=== PATIENT | female | born 1990 | race Caucasian/White ===

== ENCOUNTER 2018-01-10 12:39 | Emergency (ER) | payer BC ==
[~2018-01-10 12:39] MED LIST: MACR100C2 PO; ZOFR4TAB3 SL
--- NOTE | 2018-01-10 13:34 | PD ---
HPI Chief Complaint Contractions Date Seen: January 10, 2018 Time Seen: 13:30 Travel History International Travel<30 Days: No Contact w/Intl Traveler<30Days: No Known Affected Area: No History of Present Illness HPI 27yo at 38 weeks and 3 days comes in here complaining of contractions that have improved greatly since she is arrived. Patient states that she was checked about a week ago and her cervix was effaced but not yet dilated. Her contractions although were fairly frequent were very mild and were not painful at home not associated with vaginal bleeding no discharge no rupture membranes and she is having good movement. Patient denies any antepartum complications Weeks Gestation: 38 Para: 0 : 1 History Past Medical History Medical History: Denies Significant Hx Past Surgical History Surgical History: No Previous Surgery Family History Family History: Negative Social History Alcohol Use: No Tobacco Use: No Substance Abuse: No Allergies-Medications (Allergen,Severity, Reaction): Coded Allergies: No Known Allergies (Unverified , 06/29/17) Home Meds Active Scripts Nitrofurantoin Monohydrate Macrocrystals (Macrobid) 100 Mg Cap, 100 MG PO BID for Infection for 7 Days, #14 CAP 0 Refills Prov:Rizwan Aguirre MD 06/29/17 Ondansetron Odt (Zofran Odt) 4 Mg Tab, 4 MG SL Q6HR Y for Nausea/Vomiting, #30 TAB 0 Refills Prov:Rizwan Aguirre MD 06/29/17 Review of Systems Except as stated in HPI: all other systems reviewed are Neg Physical Exam Narrative GENERAL: Well-nourished, well-developed patient. SKIN: Warm and dry. HEAD: Normocephalic and atraumatic. EYES: No scleral icterus. No injection or drainage. ENT: No nasal drainage noted. Mucous membranes pink. Airway patent. NECK: Supple, trachea midline. No JVD. CARDIOVASCULAR: Regular rate and rhythm without murmurs, gallops, or rubs. RESPIRATORY: Breath sounds equal bilaterally. No accessory muscle use. ABDOMEN/GI: Abdomen soft, non-tender, bowel sounds present, no rebound, no guarding Gravid to [-37] weeks size Fundal Height: [-] GENITOURINARY: External Genitalia: intact and normal in appearance BUS glands: [-] Normal Cervix: [-] Posterior Dilatation: [-] 1 Effacement: [-] 80 Station: [-] -3 Presentation: [-] Vertex Membranes: [intact or ruptured] intact Uterine Contractions: [-] Rare, only single contractions since patient's arrival 20 minutes ago FHT's: Category: [-] 1 Baseline: [-] 140 Reactive: [-] Moderate Variability: [-] Moderate Decels: [-] Absent EXTREMITIES: No cyanosis or edema. BACK: Nontender without obvious deformity. No CVA tenderness. NEUROLOGICAL: Awake and alert. Motor and sensory grossly within normal limits. Five out of 5 muscle strength in all muscle groups. Normal speech. Data Data Vital Signs Reviewed: Yes [facility] Medical Record Reviewed: Yes Plan 27-year-old at 38 weeks 3 days with false labor, minimal contractions presently with rapid improvement after arrival Patient has a follow-up appointment this week Discussed labor precautions in detail and went to come back to the hospital Diagnosis Diagnosis: Primary Impression: 38 weeks gestation of Additional Impression: False labor after 37 weeks of gestation without delivery Disposition: 01 DISCHARGE HOME Emily Kay MD January 10, 2018 13:34
== END 2018-01-10 13:59 | disposition home or self-care (01) ==
LOC: HOBED 12:39
DX: O47.1 False labor at or after 37 completed weeks of gestation (principal); Z3A.38 38 weeks gestation of pregnancy
CPT/HCPCS: 59025

== ENCOUNTER 2018-01-24 17:52 | Inpatient (IN) | payer BC ==
[~2018-01-24] VITALS: Ht 167.6 cm; Wt 79.0 kg
[2018-01-24] MEDS: LACTATED RINGER'S 1000 ML INJ 1,000 ML IV SCH ×2 (18:15→19:10)
[2018-01-24] MEDS ORDERED: LACTATED RINGER'S 1000 ML INJ 1,000 ML IV PRN (19:10)
[2018-01-24] MEDS ORDERED: DINOPROSTONE 10 MG VAG INSERT VAGINAL ONE (19:15)
[2018-01-24] MEDS ORDERED: LIDOCAINE HCL 1% 50 ML VIAL I-DERMAL PRN (19:15)
[2018-01-24] MEDS ORDERED: OXYTOCIN 30 UNITS-500ML PREMIX 500 ML IV ONE (19:15)
[2018-01-24] MEDS ORDERED: SODIUM CHLORID 0.9% 500 ML INJ 500 ML IV PRN (19:15)
[2018-01-24] MEDS ORDERED: MINERAL OIL 10 ML VIAL TOPICAL PRN (19:15)
[2018-01-24] MEDS ORDERED: SODIUM CHLORIDE 0.9% FLUSH 10 ML FLUSH IV FLUSH PRN (19:15)
[2018-01-24] MEDS ORDERED: CITRIC ACID-SODIUM CITRATE LIQ 30 ML UDC PO SCH (19:15)
[2018-01-24] MEDS ORDERED: LIDOCAINE HCL 1% 50 ML VIAL INFIL PRN (19:15)
[2018-01-24] MEDS ORDERED: SODIUM CHLOR 0.9% 1000 ML INJ 1,000 ML IV PRN (19:30)
[2018-01-24] MEDS ORDERED: ONDANSETRON ODT 4 MG TAB PO PRN (19:30)
[2018-01-24 19:33] LABS: AUTOMATED NEUTROPHIL # 8.8 TH/MM3 (1.8-7.7); BASOPHIL % 0.4 % (0.0-2.0); EOSINOPHIL # 0.1 TH/MM3 (0-0.4); EOSINOPHIL % 0.6 % (0.0-4.0); HEMOGLOBIN 10.1 GM/DL (11.6-15.3); LYMPH % 20.2 % (9.0-44.0); LYMPHOCYTE # 2.4 TH/MM3 (1.0-4.8); MEAN CELL VOLUME 78.6 FL (80.0-100.0); MEAN CORPUSCULAR HEMOGLOBIN 25.6 PG (27.0-34.0); MEAN CORPUSCULAR HGB CONC 32.5 % (32.0-36.0); MEAN PLATELET VOLUME 9.6 FL (7.0-11.0); MONOCYTE # 0.7 TH/MM3 (0-0.9); NEUT % 72.8 % (16.0-70.0); PLATELET COUNT 332 TH/MM3 (150-450); RED BLOOD COUNT 3.94 MIL/MM3 (4.00-5.30); RED CELL DISTRIBUTION WIDTH 15.8 % (11.6-17.2); WHITE BLOOD COUNT 12.1 TH/MM3 (4.0-11.0)
[2018-01-24 19:42] LABS: BACTERIA, URINE OCC /hpf; BILIRUBIN, URINE NEG (NEG); BLOOD, URINE TRACE (NEG); GLUCOSE,URINE NEG (NEG); KETONE, URINE NEG (NEG); MUCUS URINE FEW /lpf (OCC); NITRITE,URINE NEG (NEG); SQUAMOUS EPITHELIAL CELL URINE 37 /hpf (0-5); URINE COLOR YELLOW (YELLW/STRAW); URINE LEUKOCYTE ESTERASE LARGE (NEG); WHITE BLOOD CELL CLUMPS FEW
[2018-01-24] MEDS ORDERED: MISOPROSTOL 25 MCG TAB VAGINAL ONE (20:00)
[2018-01-24] MEDS ORDERED: MISOPROSTOL 25 MCG TAB VAGINAL PRN (20:00)
[2018-01-24] MEDS ORDERED: SODIUM CHLORIDE 0.9% FLUSH 10 ML FLUSH IV FLUSH SCH (21:00)
[2018-01-25] VITALS (7 sets, daily range): BP systolic 115–126; BP diastolic 55–73; PULSE 75–90; RESP 17–19; TEMP 97.5; O2SAT 99
[2018-01-25] MEDS: LACTATED RINGER'S 1000 ML INJ 1,000 ML IV SCH ×3 (02:44→11:22)
--- NOTE | 2018-01-25 08:01 | HHI.HP ---
HPI Chief Complaint labor induction, postdates Date Seen: Jan 25, 2018 Time Seen: 07:40 Travel History International Travel<30 Days: No Contact w/Intl Traveler<30Days: No Known Affected Area: No History of Present Illness HPI 27 yo G1 with EDC 01/21/18 presented last evening for scheduled postdates induction, now 40w4d. No complications during . Mild contraction pain /10, no VB or LOF. Good FM. Weeks Gestation: 41 Para: 0 : 1 Miscarriage: 0 : 0 History Past Medical History Narrative Medical denies significant Obstetric History Obstetric History G1 = current Past Surgical History Narrative Surgical denies Family History Family History: Negative Social History Alcohol Use: No Tobacco Use: Yes (quit when found out at 6 wks) Substance Abuse: No Allergies-Medications (Allergen,Severity, Reaction): Coded Allergies: No Known Allergies (Unverified , 01/24/18) Home Meds Active Scripts Nitrofurantoin Monohydrate Macrocrystals (Macrobid) 100 Mg Cap, 100 MG PO BID for Infection for 7 Days, #14 CAP 0 Refills Prov:Rizwan Aguirre MD 06/29/17 Ondansetron Odt (Zofran Odt) 4 Mg Tab, 4 MG SL Q6HR Y for Nausea/Vomiting, #30 TAB 0 Refills Prov:Rizwan Aguirre MD 06/29/17 Review of Systems General / Constitutional: Weight Gain, No: Fever, Chills, Other Eyes: No: Diploplia, Blurred Vision, Visual changes, Pain, Photophobia HENT: No: Headaches, Vertigo, Lightheadedness Cardiovascular: No: Irregular Rhythm, Chest Pain or Discomfort, Palpitations, Tachycardia, Syncope, Varicosities, Edema, Cyanosis Respiratory: No: Cough, Short of Breath, Other Gastrointestinal: No: Nausea, Vomiting, Diarrhea Genitourinary: Pelvic Pain (pressure), No: Decreased Urinary Output, Oliguria Musculoskeletal: No: Limited ROM, Weakness, Cramping, Edema, Pain Skin: No Rash, No Itching, No Dryness, No Lumps, No Change in Pigmentation, No Change in Nails, No Alopecia, No Lesions Neurologic: No: Weakness, Dizziness, Syncope, Focal Abnormalities, Coordination Problem, Headache, Slurred Speech, Seizures Psychiatric: No: Depression, Suicidal Ideations, Homicidal Ideation Endocrine: No: Heat Intolerance, Cold Intolerance, Polydipsia, Polyuria, Other Physical Exam Narrative GENERAL: Well-nourished, well-developed patient. SKIN: Warm and dry. HEAD: Normocephalic and atraumatic. EYES: No scleral icterus. No injection or drainage. ENT: No nasal drainage noted. Mucous membranes pink. Airway patent. NECK: Supple, trachea midline. No JVD. CARDIOVASCULAR: Regular rate and rhythm without murmurs, gallops, or rubs. RESPIRATORY: Breath sounds equal bilaterally. No accessory muscle use. BREASTS: deferred ABDOMEN/GI: Abdomen soft, non-tender, bowel sounds present, no rebound, no guarding Gravid to [41] weeks size Fundal Height: [41] GENITOURINARY: External Genitalia: intact and normal in appearance Cervix: [posterior, soft] Dilatation: [closed; scar tissue palpated at os; pt denies h/o surgery] Effacement: [60] Station: [-3] Presentation: [vtx] Membranes: [intact] Uterine Contractions: [irregular, mild] FHT's: Category: [I] Baseline: [120s-130s] Reactive: [y] Variability: [y] Decels: [n] EXTREMITIES: No cyanosis or edema. BACK: Nontender without obvious deformity. No CVA tenderness. NEUROLOGICAL: Awake and alert. Motor and sensory grossly within normal limits. Five out of 5 muscle strength in all muscle groups. Normal speech. Caprini VTE Risk Assessment Caprini VTE Risk Assessment: No/Low Risk (score <= 1) VTE Pharm Contraindication: Epidural catheter Caprini Risk Assessment Model Point Value = 1 Point Value = 2 Point Value = 3 Point Value = 5 Age 41-60 Minor surgery BMI > 25 kg/m2 Swollen legs Varicose veins or History of unexplained or recurrent spontaneous Oral contraceptives or hormone replacement Sepsis (< 1 month) Serious lung disease, including pneumonia (< 1 month) Abnormal pulmonary function Acute myocardial infarction Congestive heart failure (< 1 month) History of inflammatory bowel disease Medical patient at bed rest Age 61-74 Arthroscopic surgery Major open surgery (> 45 min) Laparoscopic surgery (> 45 min) Malignancy Confined to bed (> 72 hours) Immobilizing plaster cast Central venous access Age >= 75 History of VTE Family history of VTE Factor V Leiden Prothrombin [id number] Lupus anticoagulant Anticardiolipin antibodies Elevated serum homocysteine Heparin-induced thrombocytopenia Other congenital or acquired thrombophilia Stroke (< 1 month) Elective arthroplasty Hip, pelvis, or leg fracture Acute spinal cord injury (< 1 month) Prophylaxis Regimen Total Risk Factor Score Risk Level Prophylaxis Regimen 0-1 Low Early ambulation 2 Moderate Order ONE of the following: *Sequential Compression Device (SCD) *Heparin 5000 units SQ BID 3-4 Higher Order ONE of the following medications: *Heparin 5000 units SQ TID *Enoxaparin/Lovenox 40 mg SQ daily (WT < 150 kg, CrCl > 30 mL/min) *Enoxaparin/Lovenox 30 mg SQ daily (WT < 150 kg, CrCl > 10-29 mL/min) *Enoxaparin/Lovenox 30 mg SQ BID (WT < 150 kg, CrCl > 30 mL/min) AND/OR *Sequential Compression Device (SCD) 5 or more Highest Order ONE of the following medications: *Heparin 5000 units SQ TID (Preferred with Epidurals) *Enoxaparin/Lovenox 40 mg SQ daily (WT < 150 kg, CrCl > 30 mL/min) *Enoxaparin/Lovenox 30 mg SQ daily (WT < 150 kg, CrCl > 10-29 mL/min) *Enoxaparin/Lovenox 30 mg SQ BID (WT < 150 kg, CrCl > 30 mL/min) AND *Sequential Compression Device (SCD) Data Data Vital Signs Reviewed: Yes Orders Orders Admit To Inpatient (01/24/18 ) Activity Oob Ad Manisha (01/24/18 19:10) ^ Labor Induction (01/24/18 19:10) ^ Vaginal Insert (01/24/18 19:10) ^ Vaginal Lavage (01/24/18 19:10) Heart (01/24/18 19:10) Lactated Ringer's 1000 Ml Inj (Lr 1000 M (01/24/18 19:10) Sodium Chloride 0.9% Flush (Ns Flush) (01/24/18 21:00) Sodium Chloride 0.9% Flush (Ns Flush) (01/24/18 19:15) Admit To Inpatient (01/24/18 ) Code Status (01/24/18 19:10) Vital Signs (Adult) .Per protocol (01/24/18 19:10) Heart (01/24/18 19:10) Amnioinfusion (01/24/18 19:10) Urinary Catheter Management .ONCE (01/24/18 19:10) Lactated Ringer's 1000 Ml Inj (Lr 1000 M (01/24/18 19:10) Lactated Ringer's 1000 Ml Inj (Lr 1000 M (01/24/18 19:10) Sodium Chlorid 0.9% 500 Ml Inj (Ns 500 M (01/24/18 19:15) Sodium Chlor 0.9% 1000 Ml Inj (Ns 1000 M (01/24/18 19:30) Lidocaine 1% Inj (50 Ml) (Xylocaine 1% I (01/24/18 19:15) Citric Acid-Sodium Citrate Liq (Bicitra (01/24/18 19:15) Fentanyl Inj (Fentanyl Inj) (01/24/18 19:15) Fentanyl Inj (Fentanyl Inj) (01/24/18 19:15) Complete Blood Count With Diff (01/24/18 19:10) Hold Clot (01/24/18 19:10) Abo/Rh Blood Type (01/24/18 19:10) Urinalysis - C+S If Indicated (01/24/18 19:10) Ob/Psych Drug Screen, Urine (01/24/18 19:10) Resp Oxygen Non Rebreathe Mask (01/24/18 ) ^ Epidural / Intrathecal Infus (01/24/18 19:10) Oxytocin 30 Units-500ml Premix (Pitocin (01/24/18 19:15) Lidocaine 1% Inj (50 Ml) (Xylocaine 1% I (01/24/18 19:15) Light Mineral Oil (Muri-Lube Oil) (01/24/18 19:15) Inpatient Certification (01/24/18 ) Specimen To Be Collected PRN (01/24/18 19:10) Specimen To Be Collected PRN (01/24/18 19:10) Ondansetron Odt (Zofran Odt) (01/24/18 19:30) Urine Culture (01/24/18 18:15) Misoprostol (Cytotec) (01/24/18 20:00) Misoprostol (Cytotec) (01/24/18 20:00) Diet Clear Liquid (01/25/18 Breakfast) Diet Regular Basic (01/25/18 Breakfast) Diet Clear Liquid (01/25/18 Lunch) Group B Strep: Negative Labs Laboratory Tests Test 01/24/18 18:15 White Blood Count 12.1 Red Blood Count 3.94 Hemoglobin 10.1 Hematocrit 31.0 Mean Corpuscular Volume 78.6 Mean Corpuscular Hemoglobin 25.6 Mean Corpuscular Hemoglobin Concent 32.5 Red Cell Distribution Width 15.8 Platelet Count 332 Mean Platelet Volume 9.6 Neutrophils (%) (Auto) 72.8 Lymphocytes (%) (Auto) 20.2 Monocytes (%) (Auto) 6.0 Eosinophils (%) (Auto) 0.6 Basophils (%) (Auto) 0.4 Neutrophils # (Auto) 8.8 Lymphocytes # (Auto) 2.4 Monocytes # (Auto) 0.7 Eosinophils # (Auto) 0.1 Basophils # (Auto) 0.0 CBC Comment DIFF FINAL Differential Comment Urine Color YELLOW Urine Turbidity HAZY Urine pH 6.0 Urine Specific [place] 1.024 Urine Protein 30 Urine Glucose (UA) NEG Urine Ketones NEG Urine Occult Blood TRACE Urine Nitrite NEG Urine Bilirubin NEG Urine Urobilinogen 2.0 Urine Leukocyte Esterase LARGE Urine RBC 9 Urine WBC 43 Urine WBC Clumps FEW Urine Squamous Epithelial Cells 37 Urine Bacteria OCC Urine Mucus FEW Microscopic Urinalysis Comment CULTURE INDICATED Urine Opiates Screen NEG Urine Barbiturates Screen NEG Urine Amphetamines Screen NEG Urine Benzodiazepines Screen NEG Urine Cocaine Screen NEG Urine Cannabinoids Screen NEG Date/Time Source Procedure Growth Status 01/24/18 18:15 Urine Clean Catch Urine Culture Pending Received Assessment/Plan Problem List: (1) Post-dates ICD Codes: O48.0 - Post-term Assessment and Plan 27 yo G1 with EDC 01/21/18 presents for scheduled postdates labor induction 1) IOL: s/p 2 doses of cytotec overnight, cervix remains closed, haile irregularly, will allow to shower, eat breakfast, & place addt'l vaginal cytotec dose; pt aware of risks of induction including distress/failure, possibility of need for 2) GBS neg 3) status: Cat I tracing, Vertex, EFW 8# Discharge Planning routine 2-3d PP Shari Amaro MD Jan 25, 2018 08:01
[2018-01-25] MEDS ORDERED: fentaNYL 2MCG-BUPIV 0.125% INJ 150 ML EPIDURAL ONE (08:53)
[2018-01-25] MEDS ORDERED: LIDOCAINE 1%/EPINEPHrine 1:200,000 PF SOLN 30 ML VIAL ONE (09:03)
[2018-01-25] MEDS ORDERED: MISOPROSTOL 25 MCG TAB PO ONE (09:30)
[2018-01-25] MEDS ORDERED: OXYTOCIN 30 UNITS-500ML PREMIX 500 ML ONE (10:09)
[2018-01-25] MEDS ORDERED: fentaNYL 2MCG-BUPIV 0.125% 100 ML EPIDURAL PRN (10:15)
[2018-01-25] MEDS ORDERED: ePHEDrine/NS 25 MG/5 ML SYRINGE IV PUSH PRN (10:15)
[2018-01-25] MEDS ORDERED: DO NOT ADMINISTER ANTICOAGULANTS PRN (10:15)
[2018-01-25] MEDS ORDERED: NO SYSTEM NARCOTICS PRN (10:15)
[2018-01-25] MEDS ORDERED: OXYTOCIN 30 UNITS-500ML PREMIX 500 ML IV PRN (12:00)
[2018-01-25] MEDS ORDERED: LIDOCAINE HCL 1% PF 30 ML VIAL ONE (14:56)
--- NOTE | 2018-01-25 15:27 | PD.OB.DELI ---
Weeks gestation: 41 Anesthesia: Epidural Episiotomy: None Vaginal Delivery: Normal Presentation: Vertex Nuchal Cord: None Delayed cord clamping (45 sec): Yes Infant: Male Delivery date: Jan 25, 2018 Delivery time: 15:07 One Minute : 8 Five Minute : 9 Placenta: Spontaneous delivery, Intact, 3 vessel cord Laceration: Perineal laceration, 2 deg Repair: Chromic running Estimated blood loss: 200 mL Additional Information healthy male Shari Amaro MD Jan 25, 2018 15:27
[2018-01-25] MEDS ORDERED: ACETAMINOPHEN 325 MG TAB PO PRN (15:30)
[2018-01-25] MEDS ORDERED: SODIUM CHLORIDE 0.9% FLUSH 10 ML FLUSH IV FLUSH PRN (15:30)
[2018-01-25] MEDS ORDERED: OXYTOCIN 30 UNITS-500ML PREMIX 500 ML IV SCH (15:30)
[2018-01-25] MEDS ORDERED: ALUMINUM/MAGNESIUM/SIMETH 30 ML CUP PO PRN (15:30)
[2018-01-25] MEDS ORDERED: ZOLPIDEM TARTRATE 5 MG TAB PO PRN (15:30)
[2018-01-25] MEDS ORDERED: WITCH HAZEL 50%/GLYCERIN 12.5% 40 PAD JAR TOPICAL PRN (15:30)
[2018-01-25] MEDS ORDERED: oxyCODONE/ACETAMINOPHEN 5 MG/325 MG TAB PO PRN (15:30)
[2018-01-25] MEDS ORDERED: BENZOCAINE 20% TOPICAL SPRAY 60 ML CAN TOPICAL PRN (15:30)
[2018-01-25] MEDS ORDERED: ONDANSETRON ODT 4 MG TAB PO PRN (15:30)
[2018-01-25] MEDS ORDERED: DIPHTH/TETANUS/ACEL PERTUSSIS (BOOSTER) 0.5 ML VIAL/PFS IM ONE (16:00)
[2018-01-25] MEDS ORDERED: MEASLES, MUMPS, RUBELLA VACCINE 0.5 ML VIAL SQ ONE (16:00)
[2018-01-25] MEDS ORDERED: SODIUM CHLORIDE 0.9% FLUSH 10 ML FLUSH IV FLUSH SCH (21:00)
[2018-01-25] MEDS: DOCUSATE SODIUM 50 MG/SENNA 8.6 MG TAB PO PRN (22:59)
[2018-01-25] MEDS: IBUPROFEN 800 MG TAB PO PRN (22:59)
--- NOTE | 2018-01-26 08:42 | HHI.OB ---
Subjective Post Day: 1 Objective Vitals/I&O doing well with nursing Objective Remarks GENERAL: Well-nourished, well-developed patient. CARDIOVASCULAR: Regular rate and rhythm without murmurs, gallops, or rubs. RESPIRATORY: Breath sounds equal bilaterally. No accessory muscle use. ABDOMEN/GI: Abdomen soft, non-tender. Fundus: Firm, non-tender at umbilicus. GENITOURINARY: Light to moderate bleeding. EXTREMITIES: No cyanosis or edema, non-tender, without signs of DVT. Medications and IVs Current Medications Medications (Trade) Dose Ordered Sig/Adelso Route Start Time Stop Time Status Last Admin (NS Flush) 2 ml BID IV FLUSH 01/25/18 21:00 (NS Flush) 2 ml UNSCH PRN IV FLUSH 01/25/18 15:30 (Tylenol) 650 mg Q4H PRN PO 01/25/18 15:30 (Motrin) 800 mg Q8H PRN PO 01/25/18 15:30 01/25/18 22:59 (Percocet 5-325 Mg) 1 tab Q4H PRN PO 01/25/18 15:30 (Percocet 5-325 Mg) 2 tab Q4H PRN PO 01/25/18 15:30 (Americaine 20% Top Spr) 1 spray Q4H PRN TOPICAL 01/25/18 15:30 01/25/18 23:13 (Tucks Pads) 1 applic QID PRN TOPICAL 01/25/18 15:30 01/25/18 23:12 (Angelita-Colace) 2 tab Q12H PRN PO 01/25/18 15:30 01/25/18 22:59 (Ambien) 5 mg HS PRN PO 01/25/18 15:30 (Mag-Al Plus Susp Liq) 15 ml Q8H PRN PO 01/25/18 15:30 (Zofran Odt) 4 mg Q6H PRN PO 01/25/18 15:30 Assessment/Plan Problem List: (1) Post-dates ICD Codes: O48.0 - Post-term Assessment and Plan 27 yo G1 with EDC 01/21/18 presents for scheduled postdates labor induction 1) IOL: s/p 2 doses of cytotec overnight, cervix remains closed, haile irregularly, will allow to shower, eat breakfast, & place addt'l vaginal cytotec dose; pt aware of risks of induction including distress/failure, possibility of need for 2) GBS neg 3) status: Cat I tracing, Vertex, EFW 8# Discharge Planning routine 2-3d PP PPD 1 unremarkable anticipate home in am baby for circumcison Yolanda Sunshine MD Jan 26, 2018 08:42
[2018-01-26] MEDS: IBUPROFEN 800 MG TAB PO PRN ×2 (10:41→18:38)
[2018-01-26] MEDS: oxyCODONE/ACETAMINOPHEN 5 MG/325 MG TAB PO PRN (18:39)
[2018-01-27] MEDS: IBUPROFEN 800 MG TAB PO PRN ×2 (03:58→13:50)
[2018-01-27] MEDS: oxyCODONE/ACETAMINOPHEN 5 MG/325 MG TAB PO PRN ×2 (03:58→13:51)
--- NOTE | 2018-01-27 11:33 | HHI.OB ---
Subjective Post Day: 2 Remarks PPD#2; Doing well, discharge to home Objective Objective Remarks GENERAL: Well-nourished, well-developed patient. CARDIOVASCULAR: Regular rate and rhythm without murmurs, gallops, or rubs. RESPIRATORY: Breath sounds equal bilaterally. No accessory muscle use. ABDOMEN/GI: Abdomen soft, non-tender. Fundus: Firm, non-tender at umbilicus. GENITOURINARY: Light to moderate bleeding. EXTREMITIES: No cyanosis or edema, non-tender, without signs of DVT. Medications and IVs Current Medications Medications (Trade) Dose Ordered Sig/Adelso Route Start Time Stop Time Status Last Admin (NS Flush) 2 ml BID IV FLUSH 01/25/18 21:00 (NS Flush) 2 ml UNSCH PRN IV FLUSH 01/25/18 15:30 (Tylenol) 650 mg Q4H PRN PO 01/25/18 15:30 (Motrin) 800 mg Q8H PRN PO 01/25/18 15:30 01/27/18 03:58 (Percocet 5-325 Mg) 1 tab Q4H PRN PO 01/25/18 15:30 01/27/18 03:58 (Percocet 5-325 Mg) 2 tab Q4H PRN PO 01/25/18 15:30 (Americaine 20% Top Spr) 1 spray Q4H PRN TOPICAL 01/25/18 15:30 01/25/18 23:13 (Tucks Pads) 1 applic QID PRN TOPICAL 01/25/18 15:30 01/25/18 23:12 (Angelita-Colace) 2 tab Q12H PRN PO 01/25/18 15:30 01/25/18 22:59 (Ambien) 5 mg HS PRN PO 01/25/18 15:30 (Mag-Al Plus Susp Liq) 15 ml Q8H PRN PO 01/25/18 15:30 (Zofran Odt) 4 mg Q6H PRN PO 01/25/18 15:30 Assessment/Plan Problem List: (1) Post-dates ICD Codes: O48.0 - Post-term Assessment and Plan 27 yo G1 with EDC 01/21/18 presents for scheduled postdates labor induction 1) IOL: s/p 2 doses of cytotec overnight, cervix remains closed, haile irregularly, will allow to shower, eat breakfast, & place addt'l vaginal cytotec dose; pt aware of risks of induction including distress/failure, possibility of need for 2) GBS neg 3) status: Cat I tracing, Vertex, EFW 8# PPD#2; doing well, plan d/c today; male infant circ. completed. Discharge Planning routine Attending Attestation seen by Tomer Diaz MD Jan 27, 2018 11:33
--- NOTE | 2018-01-27 11:34 | HHI.DS ---
Admission Date Jan 24, 2018 at 17:52 Admitting Diagnosis Diagnosis: Delivery Date: Jan 25, 2018 Vaginal Delivery: Normal : Male Brief History 27 yo G1 with EDC 01/21/18 presented last evening for scheduled postdates induction, now 40w4d. No complications during . Mild contraction pain 09/02, no VB or LOF. Good FM. Pt Condition on Discharge: Good Discharge Disposition: Discharge Home Discharge Instructions Diet Instructions: As Tolerated, No Restrictions Activities You Can Perform: Shower Only-No Bath Activities to Avoid: Prolonged Standing, Strenuous Activity, Sexual Activity Tomer Rodriguez MD Jan 27, 2018 11:34
[2018-01-27] MEDS: DOCUSATE SODIUM 50 MG/SENNA 8.6 MG TAB PO PRN (13:50)
== END 2018-01-27 14:03 | disposition home or self-care (01) | DRG 775 ==
LOC: H2EA 17:52 → H1EA 01-25 17:47
PROVIDERS: ADMIT Obstetrics & Gynecology; ATTEND Obstetrics & Gynecology
PROC: 3E0P7VZ Introduction of Hormone into Female Reproductive, Via Natural or Artificial Opening (ICD-10-PCS; 2018-01-24)
PROC: 10E0XZZ Delivery of Products of Conception, External Approach (ICD-10-PCS; principal; 2018-01-25)
PROC: 0KQM0ZZ Repair Perineum Muscle, Open Approach (ICD-10-PCS; 2018-01-25)
DX: O48.0 Post-term pregnancy (principal); O70.1 Second degree perineal laceration during delivery; Z87.891 Personal history of nicotine dependence; Z37.0 Single live birth; Z3A.41 41 weeks gestation of pregnancy
CPT/HCPCS: 59025; 80307; 81001; 85025; 86900; 86901; 87086; 90715; G0481; J2590; J3010; J7120